=== PATIENT | male | born 1985 | race Caucasian/White ===

== ENCOUNTER 2018-12-06 18:23 | Emergency (ER) | payer BC, OTHER ==
[~2018-12-06] VITALS: Ht 175.2 cm; Wt 104.5 kg
[2018-12-06] MEDS ORDERED: ceFAZolin 2 GM IV Premixed 50 ML IV STA (18:30)
[2018-12-06] MEDS ORDERED: LIDOCAINE 1% INJ 20 ML 20 ML VIAL INJ STA (18:30)
[2018-12-06] MEDS ORDERED: TETANUS,DIPTH,PERTUSS P/F (BOOSTRIX) 0.5 ML VIAL IM ONE (18:30)
[2018-12-06] MEDS ORDERED: ceFAZolin INJECTION 2,000 MG ONE (18:35)
[2018-12-06] MEDS ORDERED: NS (IVPB) 100 ML ONE (18:36)
--- NOTE | 2018-12-06 18:47 | ED Upper Extremity ---
General Stated Complaint: LEFT THUMB AMPUTATION Source: patient History of Present Illness Date Seen by Provider: Dec 06, 2018 Time Seen by Provider: 18:24 Initial Comments 33 yo M presents after having an injury with a crossbow tonight. 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 he is unsure of his last tetanus shot. He is right hand dominant. He has throbbing pain in the left thumb. He has slight decrease in range of motion of the distal thumb due to pain and injury. He states he can still feel light touch to the tip of the nearly avulsed finger tip on the left thumb. it did go through the nail as part of the injury. He has no other injury. He was not wearing his thumb guard when this happened. For work he runs a [employer]. Allergies and Home Medications Allergies Coded Allergies: No Known Drug Allergies (Unverified , 12/06/18) Home Medications Cephalexin 500 Mg Tablet, 500 MG PO QID Prescribed by: PIERO VALLE on 12/06/182047 Hydrocodone Bit/Acetaminophen 1 Tab Tab, 1 EACH PO Q4-6HR PRN for PAIN-MODERATE Prescribed by: PIERO VALLE on 12/06/182047 Pantoprazole Sodium 40 Mg Tablet., 40 MG PO DAILY, (Reported) Patient Home Medication List Home Medication List Reviewed: Yes Review of Systems Constitutional: No chills, No fever EENTM: no symptoms reported Respiratory: no symptoms reported Cardiovascular: no symptoms reported Gastrointestinal: no symptoms reported Genitourinary: no symptoms reported Musculoskeletal: see HPI Skin: see HPI Psychiatric/Neurological: Tingling (decreased sensation to left thumb tip) Past Nvdhfyj-Hzbdbk-Fsuffl Hx Past Med/Social Hx: Reviewed Nursing Past Med/Soc Hx Physical Exam Vital Signs Vital Signs - First Documented 12/06/18 18:25 Temp 38.1 Pulse 112 Resp 22 B/P (MAP) 163/88 (113) Pulse Ox 97 O2 Delivery Room Air Capillary Refill : Height, Weight, BMI Height: '" Weight: lbs. oz. kg; BMI Method: General Appearance: WD/WN, moderate distress (due to thumb injury and pain with bleeding from injury) HEENT: PERRL/EOMI, pharynx normal Cardiovascular: normal peripheral pulses Hand: Left (distal thumb laceration and near avulsion of the fingertip), deformity, ecchymosis, laceration, limited ROM, nail injury, soft tissue tenderness Procedures/Interventions Wound Location: Upper Extremities (left thumb) Wound Length (cm): 4.3 Wound's Depth, Shape: into muscle, flap, contused tissue, bone, sub Q Wound Explored: no foreign body seen Irrigated w/ Saline (ccs): 250 Betadine Prep?: Yes Anesthesia: 1% Lidocaine (digital block) Volume Anesthetic (ccs): 15 Suture: Prolene (4-0) Suture Size: 4-0 Number of Sutures: 5 Layer Closure?: 1 Sterile Dressing Applied?: Yes Progress After injecting 1% plain Lidocaine as a digital block I then applied a large tornicot to help with bleeding and pain control. this was applied at 1905. He then had soaked his thumb in a chlorhexidine and saline solution. Then after 15 minutes I went back and used 250 mL of Betadine and Sterile Saline to irrigate the wound and open area fo the bone injury. No foreign bodies seen. Then the wound edges were approximated with 5 loose simple interrupted stitches. He tolerated this well without any immediate complications. he had a non stick dressing applied and a tube gauze dressing over that. Counseled on follow up and return precautions. Progress/Results/Core Measures Results/Orders My Orders Orders - PIERO VALLE MD Dipht,Pertuss(Acell),Tet Adult (Boostrix (12/06/18 18:30) Lidocaine 1% Inj 20 Ml (Xylocaine 1% Inj (12/06/18 18:30) Cefazolin 2 Gm Iv Premixed (Ancef 2 Gm P (12/06/18 18:30) Iv/Invasive Line Insertion .IV start (12/06/18 18:30) Finger(S) (12/06/18 18:32) Cefazolin Injection (Ancef Injection) (12/06/18 18:35) Ns (Ivpb) (Sodium Chloride 0.9% Ivpb Bag (12/06/18 18:36) Morphine Injection (Morphine Injection (12/06/18 19:29) Finger(S) (12/06/18 20:38) Orthopedic Equiment (12/06/18 20:38) Wound Dressing-Ed (12/06/18 20:38) Rx-Hydrocodone/Apap 5-325 Mg (Rx-Vicodin (10/13/19 20:45) Rx-Cephalexin Capsule (Rx-Keflex Capsule (12/06/18 20:39) Medications Given in ED Current Medications Medications Dose Ordered Sig/Autumn Route Start Time Stop Time Status Last Admin Dose Admin Acetaminophen/ Hydrocodone Bitart 1 ea Q6H PRN PO 12/06/18 20:45 12/06/18 21:29 DC 12/06/18 21:12 1 EA Diphtheria/ Tetanus/Acell Pertussis 0.5 ml ONCE ONCE IM 12/06/18 18:30 12/06/18 18:32 DC 12/06/18 18:42 0.5 ML Vital Signs/I&O 12/06/18 12/06/18 18:25 21:28 Temp 38.1 36.8 Pulse 112 71 Resp 22 18 B/P (MAP) 163/88 (113) 140/67 Pulse Ox 97 97 O2 Delivery Room Air Room Air 12/07/18 00:00 Intake Total 50 ml Balance 50 ml Progress Progress Note #1: Progress Note update tetanus vaccination since he is unsure of his last vaccination. Will perform a digital block for pain control. Obtain x-rays of the left thumb. 2 g of Ancef IV since this appears to be in an area that will likely have an open fracture of the bone. Progress Note #2: Progress Note On my review of the 3 view films of his left thumb he does have a fracture of the distal tip of the phalanx on his left thumb. He reports pain is better controlled after the digital block. Will place a turnicot to help control bleeding and maintain anesthetic effect. Contact the plastic surgeon or orthopedic service on-call for hand [facility] for guidance on management for his open fracture. Progress Note #3: Progress Note after discussion with Dr. Mau Smith, Plastic surgeon senior radiation protection technician for hand from [facility], he recommended irrigating the wound well and then loosely closing it and fitch ving the pt come to the clinic towards the end of the week for evaluation. I updated pt and family. I Irrigated the open fracture with 250 mL of Betadine in Sterile Saline. Then reapproximated the wound edges with 4-0 Prolene using 5 simple interrupted s titches to loosely bring the wound edges together. He was then placed in a non stick dressing with a tube gauze dressing. Discharge with Keflex and hydrocodone and the clinic number for Dr. Smith for follow up Diagnostic Imaging Diagonstic Imaging: Xray Plain Films/CT/US/NM/MRI: other (left thumb) Comments NAME: SAURAV BRADSHAW [facility] REC#: [id number] PT STATUS: REG ER : 1985 PHYSICIAN: PIERO VALLE MD ADMIT DATE: 12/06/18/ER FS Draft Date of Exam:12/06/18 FINGER(S) EXAMINATION: Fingers INDICATION: Laceration to thumb 3 views were obtained. The tuft of the distal phalanx of the thumb has been transected. There is a minute calcific fragment in this region as well. No other fracture or acute bony abnormality is appreciated. The soft tissues are unremarkable. There is no sign of a radiopaque foreign body. IMPRESSION: There is a broad transverse slightly comminuted fracture of the base of the tuft of the distal phalanx. There is no acute bony abnormality noted otherwise. Dictated on workstation # [id number] Dict: 12/06/181918 Trans: 12/06/181923 [facility] [id number] Interpreted by: AMY WALKER MD Electronically signed by: Reviewed: Reviewed by Me (and radiologist report) Diagonstic Imaging: Xray Plain Films/CT/US/NM/MRI: other (left thumb) Comments NAME: SAURAV BRADSHAW [facility] REC#: [id number] PT STATUS: REG ER : 1985 PHYSICIAN: PIERO VALLE MD ADMIT DATE: 12/06/18/ER FS Signed Date of Exam:12/06/18 FINGER(S) Left thumb. INDICATION: Postreduction. The exam performed earlier today noted an avulsion fracture of the tuft of the distal phalanx of the thumb. Reportedly, since the prior study an attempt at reduction of the fracture fragments has been made. On this exam, the main fracture fragments do appear to be in better alignment as the diastases between the main fracture fragments on the prior exam was 2.5 mm and on this study only approximately 1 mm. IMPRESSION: The appearance of the thumb has improved since the prior exam as the main fracture fragments do appear to be in closer proximity to the distal phalanx. Dictated by: Dictated on workstation # [id number] Dict: 12/06/182049 Trans: 12/06/182058 [facility] [id number] Interpreted by: AMY WALKER MD Electronically signed by: AMY WALKER MD 12/06/182058 Reviewed: Reviewed by Me (and radiologist report) Departure Impression Primary Impression: Open avulsion fracture of phalanx of left thumb Qualified Codes: S62.502B - Fracture of unspecified phalanx of left thumb, initial encounter for open fracture Additional Impression: Laceration of left thumb with damage to nail Qualified Codes: S61.112A - Laceration without foreign body of left thumb with damage to nail, initial encounter Disposition: HOME, SELF-CARE Condition: Stable Departure-Patient Inst. Decision time for Depature: 20:42 Referrals: NO,LOCAL PHYSICIAN (PCP) Primary Care Physician [facility] Patient Instructions: Finger Fracture (DC), Wound Care (DC), Laceration Repair With Stitches (DC) Add. Discharge Instructions: Keep wound clean and dry for first 24-36 hours. Then you may wash with soap and water but do not soak it. Apply antibiotic ointment and non stick dressing 2 times a day and use splint to help keep from further injury to your thumb. Follow up with Dr. Mau Smith or one of his partners with Plastic Surgery this week in clinic. Call in am [phone] and let them know you had a open fracture and thumb laceration that Dr. Smith wanted you to be seen this week in clinic and they should be able to get you set up to be seen for a clinic appointment towards the end of the week. Try to keep your thumb elevated above your heart level to help with pain, swelling and throbbing. May apply ice 20-30 minutes every few hours as needed to help with pain and throbbing. Check with clinic for further concerns Make sure to take the full course of antibiotics to help prevent infection. Scripts Hydrocodone Bit/Acetaminophen (Hydrocodone/Acetaminophen 5/325mg Tablet) 1 Tab Tab 1 EACH PO Q4-6HR PRN for PAIN-MODERATE MDD 10 for 5 Days, #30 TAB 0 Refills Prov: PIERO VALLE MD 12/06/18 Cephalexin (Cephalexin) 500 Mg Tablet 500 MG PO QID for 10 Days, #40 TAB 0 Refills Prov: PIERO VALLE MD 12/06/18 PIREO VALLE MD Dec 06, 2018 18:47
--- NOTE | 2018-12-06 19:24 | Diagnostic Imaging Report ---
EXAMINATION: Fingers INDICATION: Laceration to thumb 3 views were obtained. The tuft of the distal phalanx of the thumb has been transected. There is a minute calcific fragment in this region as well. No other fracture or acute bony abnormality is appreciated. The soft tissues are unremarkable. There is no sign of a radiopaque foreign body. IMPRESSION: There is a broad transverse slightly comminuted fracture of the base of the tuft of the distal phalanx. There is no acute bony abnormality noted otherwise. Dictated by: Dictated on workstation # [id number]
[2018-12-06] MEDS ORDERED: morphine INJ 10 MG/ML 1ML (SYR OR VIAL) IVP STA (19:29)
[2018-12-06] MEDS ORDERED: PANT40TA3 PO (19:29)
[2018-12-06] MEDS ORDERED: RX-CEPHALEXIN (KEFLEX) 250 MG CAP PPK#4 PO STA (20:39)
[2018-12-06] MEDS ORDERED: RX-HYDROCODONE/APAP 5/325 MG #4 TAB PK PO PRN (20:45)
[2018-12-06] MEDS ORDERED: ACHD5005 PO (20:48)
[2018-12-06] MEDS ORDERED: CEPH500T PO (20:48)
--- NOTE | 2018-12-06 21:00 | Diagnostic Imaging Report ---
Left thumb. INDICATION: Postreduction. The exam performed earlier today noted an avulsion fracture of the tuft of the distal phalanx of the thumb. Reportedly, since the prior study an attempt at reduction of the fracture fragments has been made. On this exam, the main fracture fragments do appear to be in better alignment as the diastases between the main fracture fragments on the prior exam was 2.5 mm and on this study only approximately 1 mm. IMPRESSION: The appearance of the thumb has improved since the prior exam as the main fracture fragments do appear to be in closer proximity to the distal phalanx. Dictated by: Dictated on workstation # [id number]
[2018-12-06 21:28] VITALS: BP 140/67
== END 2018-12-06 21:28 | disposition home or self-care (01) ==
LOC: ER FS 18:27
DX: S62.502B Fracture of unspecified phalanx of left thumb, initial encounter for open fracture (principal); Z23 Encounter for immunization; W26.8XXA Contact with other sharp object(s), not elsewhere classified, initial encounter
CPT/HCPCS: 12001; 73140; 90715